=== PATIENT | female | born 1935 | race Caucasian/White ===

== ENCOUNTER 2021-01-07 05:55 | Day surgery (SDC) | payer MEDICARE, BC ==
--- NOTE | 2021-01-06 14:07 | PCM.PREANE ---
Preanesthetic Assessment - Procedure Proposed Procedure: Left total knee arthroplasty with right knee steroid injection - Anesthesia/Transfusion/Family Hx Anesthesia History: Prior Anesthesia Reaction Type of Anesthesia Reaction: Excessive Nausea/Vomiting Family History of Anesthesia Reaction: No Transfusion History: No Prior Transfusion(s) Intubation History: Unknown - Review of Systems General: No Symptoms Pulmonary: No Symptoms Cardiovascular: No Symptoms Gastrointestinal: No Symptoms Neurological: No Symptoms (Hx of stroke (approx 15 years ago) no decifits) Other: Reports: Easy Bleeding (Hx plavix), Easy Bruising - Physical Assessment NPO Status Date: 01/06/21 NPO Status Time: 23:59 Vital Signs: 160/56 0620 139/70 HR 75 95% 97.2 16 Height: 1.57 m Weight: 98.9 kg ASA Class: 3 Mental Status: Alert & Oriented x3 Dentition: Reports: Normal Dentition Thyro-Mental Finger Breadths: 2 Mouth Opening Finger Breadths: 2 ROM/Head Extension: Full Lungs: Clear to Auscultation, Normal Respiratory Effort Cardiovascular: Regular Rate, Regular Rhythm - Lab Values: Labs reviewed and okay to proceed - Imaging/EKG Impressions: Chest x-ray 12/18/20: Lungs are clear. No definite focal consolidation. No pleural effusion or pneumothorax. Cardiomegaly. Fat pad at the cardiac apex. Arterial calcification. Surgical changes in the right humeral head. Degenerative changes of the spine. EKG 12/18/20: Sinus HR 69 - Allergies Allergies/Adverse Reactions: Allergies Allergy/AdvReac Type Severity Reaction Status Date / Time latex Allergy Rash Verified 01/07/21 06:27 Penicillins Allergy Hives Verified 01/07/21 06:27 - Blood Blood Available: No Product(s) Available: None - Acknowledgements Anesthesia Type Planned: Spinal, Regional Block Pt an Appropriate Candidate for the Planned Anesthesia: Yes Alternatives and Risks of Anesthesia Discussed w Pt/Guardian: Yes Pt/Guardian Understands and Agrees with Anesthesia Plan: Yes PreAnesthesia Questionnaire HEENT History: Reports: Cataract Other HEENT History: TMJ, glasses Cardiovascular History: Reports: High Cholesterol Respiratory History: Reports: Asthma, Sleep Apnea Gastrointestinal History: Reports: Colon Polyp, Diverticulosis, GERD, Hemorrhoids Other Genitourinary History: cystocele, rectocele, hysterectomy Musculoskeletal History: Reports: Osteoporosis Other Musculoskeletal History: R rotator cuff tear Other Neuro History: CVA, TIA Endocrine/Metabolic History: Reports: Obesity/BMI 30+ - Past Surgical History HEENT Surgical History: Reports: Other (See Below) Other HEENT Surgeries/Procedures: TMJ surgery GI Surgical History: Reports: Appendectomy, Colonoscopy, Hernia Repair/Other Female Surgical History: Reports: Section Other Female Surgeries/Procedures: Bladder repairs x5 Musculoskeletal Surgical History: Reports: Shoulder Surgery Other Musculoskeletal Surgeries/Procedures:: heel surgery - SUBSTANCE USE Tobacco Use Status *Q: Never Tobacco User Tobacco Use Within Last Twelve Months: No Second Hand Smoke Exposure: No Days Per Week of Alcohol Use: 0 Number of Drinks Per Day: 0 Total Drinks Per Week: 0 Recreational Drug Use History: No - HOME MEDS Home Medications: Home Meds Clopidogrel [Plavix] 75 mg PO DAILY 04/27/14 [History] Montelukast [Singulair] 5 mg PO DAILY 04/27/14 [History] Pantoprazole [ProTONIX] 40 mg PO DAILY 04/27/14 [History] Rosuvastatin [Crestor] 20 mg PO BEDTIME 04/27/14 [History] Albuterol Sulfate [Albuterol Sulfate HFA] 2 puff INH Q4H PRN 01/06/21 [History] Aspirin [Aspirin EC] 325 mg PO DAILY #30 tablet.dr 01/06/21 [Rx] B2/Vits A,C,E/Lut/Zeaxanth/Min [Icaps] 1 tab PO DAILY 01/06/21 [History] Calcium Carb/Vitamin D3/Vit K1 [Viactiv 650 mg-12.5 Mcg Chew] 3 tab PO DAILY 01/06/21 [History] Colchicine 0.6 mg PO BID 01/06/21 [History] Denosumab [Prolia] 60 mg SQ ASDIRECTED 01/06/21 [History] Fish Oil/[place]-3 Fatty Acids [Fish Oil 1,000 MG] 1 gm PO DAILY 01/06/21 [History] Fluticasone Propion/Salmeterol [Advair 250-50 Diskus] 1 puff INH BID 01/06/21 [History] Hydrocodone/Acetaminophen [Hydrocodone-Acetamin 5-325 mg] 1 - 2 each PO Q4H PRN #40 tablet 01/06/21 [Rx] Lutein 20 mg PO DAILY 01/06/21 [History] Magnesium Hydroxide [Milk of Magnesia] 5 ml PO ASDIRECTED PRN 01/06/21 [History] - CURRENT (IN HOUSE) MEDS Current Meds: Current Medications Albuterol (Albuterol 0.083% 2.5 Mg/3 Ml Neb Soln) 2.5 mg NEB ONETIME MAGALIE Stop: 01/07/21 14:00 Morphine Sulfate 8 mg/Epinephrine HCl 0.3 mg/Cefuroxime Sodium 750 mg/Ketorolac Tromethamine 30 mg/Sodium Chloride 7.9 ml 0 mg .XX ASDIRECTED PRN PRN Reason: Pain Stop: 01/07/21 18:00 Lactated Ringer's (Ringers, Lactated) 1,000 mls @ 125 mls/hr IV ASDIRECTED MAGALIE Stop: 01/07/21 23:00 Lidocaine/Sodium Bicarbonate (Lidocaine 1%/Sod Bicarbonate In Ns 8.4% 1 Ml Syringe) 0.25 ml IDERM ONETIME PRN PRN Reason: Prior to IV Start Stop: 01/07/21 23:00 Sodium Chloride (Sodium Chloride 0.9% 10 Ml Syringe) 10 ml FLUSH ASDIRECTED PRN PRN Reason: Keep Vein Open Stop: 01/07/21 23:00
[~2021-01-07 05:55] MED LIST: Albuterol 0.083% 2.5 MG/3 ML Neb Soln NEB SCH; Lactated Ringers 1,000 ML IV SCH; Lidocaine 1%/Sod Bicarbonate in NS 8.4% 1 ML Syringe IDERM PRN; Sodium Chloride 0.9% 10 ML Syringe FLUSH PRN
[2021-01-07] MEDS ORDERED: Propofol 200 MG/20 ML SDV ONE ×2 (06:08→08:09)
[2021-01-07] MEDS ORDERED: fentaNYL 100 MCG/2 ML SDV ONE (06:08)
[2021-01-07] MEDS ORDERED: Midazolam 1 MG/ML 2 ML SDV ONE (06:09)
[2021-01-07] MEDS ORDERED: Ropivacaine 0.5% 5 MG/ML 30 ML SDV ONE (06:13)
[2021-01-07] MEDS ORDERED: EPINEPHrine 1 MG/ML SDV ONE (06:13)
[2021-01-07] MEDS ORDERED: Triamcinolone Acetonide 40 MG/ML 1 ML SDV ONE (06:37)
[2021-01-07] MEDS ORDERED: Bupivacaine 0.25% 10 ML SDV ONE (06:37)
[2021-01-07] MEDS ORDERED: ceFAZolin 1 GM Vial ONE (06:48)
[2021-01-07] MEDS ORDERED: Lactated Ringers 1,000 ML ONE (07:32)
[2021-01-07] MEDS ORDERED: HYDROmorphone 0.5 MG/0.5 ML Syringe IVPUSH PRN (07:49)
[2021-01-07] MEDS ORDERED: Ondansetron 4 MG/2 ML SDV IVPUSH PRN (07:49)
[2021-01-07] MEDS ORDERED: fentaNYL 100 MCG/2 ML SDV IVPUSH PRN (07:49)
[2021-01-07] MEDS: Vancomycin 1 GM SDV ONE ×3 (08:10→08:27)
[2021-01-07] MEDS: Morphine 8 MG, EPINEPHrine 0.3 MG, Cefuroxime 750 MG, Ketorolac 30 MG, Sodium Chloride ... PRN ×10 (08:12→08:18)
--- NOTE | 2021-01-07 09:17 | PCM.SN.2 ---
- Free Text/Narrative Note: Left selective femoral nerve block at the adductor canal for post-procedure pain control under US guidance requested by Dr. Herring. Date: 01/07/2021 Time Out: 899 Start: 900 End: 907 Chart reviewed. Consent signed. Questions answered. Appropriate monitors applied. Time out performed. Left mid-shaft femur identified with ultrasound, scanning medially of femur, the femoral artery in the adductor canal visualized, and the femoral nerve located laterally to the artery. The skin was prepped lateral to the ultrasound probe with chlorahexadine times two. The 21ga 4 insulated block needle was inserted under direct ultrasound guidance into the adductor canal. 20 mL of 0.5% ropivacaine with 1:200,000 epinephrine was injected circumferentially around the nerve with intermittent negative aspiration noted. Patient tolerated the procedure well. Sterile technique noted along with sterile gloves, mask, and sterile probe cover. See picture on progress note and vital signs on nurses notes. Block completed in PACU. Melissa Berrios, LINEN CHECKER
--- NOTE | 2021-01-07 09:18 | PCM.POSTAN ---
POST ANESTHESIA ASSESSMENT - MENTAL STATUS Mental Status: Alert, Oriented - VITAL SIGNS Vital Signs: Last Vital Signs Temp 97.2 F 01/07/21 06:03 Pulse 75 01/07/21 06:03 Resp 20 01/07/21 06:03 BP 160/56 H 01/07/21 06:12 Pulse Ox 95 01/07/21 06:03 VS at 0853: 122/57 HR 68 Sats 92% RA RR 20 97.3 - RESPIRATORY Respiratory Status: Respiratory Rate WNL, Airway Patent, O2 Saturation Stable - CARDIOVASCULAR CV Status: Pulse Rate WNL, Blood Pressure Stable - GASTROINTESTINAL GI Status: No Symptoms - PAIN Pain Score: 0 - POST OP HYDRATION Hydration Status: Adequate & Stable
--- NOTE | 2021-01-07 10:12 | CR ---
Left knee: AP and lateral views of the left knee were obtained. Comparison: Prior CT knee study of 12/16/20 is available. Left knee prosthesis is noted. Patellar prosthesis is also noted. Components are aligned. Underlying bony structures show nothing acute. Soft tissue air is noted from the surgical procedure. Impression: 1. Satisfactory post-op radiographic appearance of recently placed left knee prostheses. Diagnostic code #2
[2021-01-07] MEDS ORDERED: Acetaminophen/HYDROcodone 325-5 MG Tab PO PRN (10:34)
--- NOTE | 2021-01-07 13:34 | PCM48HPAN ---
Post Anesthesia Note - EVALUATION WITHIN 48HRS OF ANESTHETIC Vital Signs in Normal Range: Yes Patient Participated in Evaluation: Yes Respiratory Function Stable: Yes Airway Patent: Yes Cardiovascular Function Stable: Yes Hydration Status Stable: Yes Pain Control Satisfactory: Yes Nausea and Vomiting Control Satisfactory: Yes Mental Status Recovered: Yes Vital Signs: Last Vital Signs Temp 97.2 F 01/07/21 09:50 Pulse 60 01/07/21 12:04 Resp 17 01/07/21 12:04 BP 166/80 H 01/07/21 12:04 Pulse Ox 94 L 01/07/21 12:04 - COMMENTS/OBSERVATIONS Free Text/Narrative:: Saw patient at 1250 and patient excited to go home. VSS. Pain tolerable 10/18. Patient ambulated well.
--- NOTE | 2021-01-14 13:06 | PCM.OPNOTE ---
- General Post-Op/Procedure Note Date of Surgery/Procedure: 01/07/21 Operative Procedure(s): left total knee arthroplasty with [employer] robot[employer] and right knee corticosteroid injection Pre Op Diagnosis: bilateral knee osteoarthrosis Post-Op Diagnosis: Same Anesthesia Technique: Local, MAC, Spinal Primary Surgeon: Cam Herring Anesthesia Provider: Melissa Berrios Sweater Designer: Patti Carrillo Sweater Designer: Marilia Segura EBL in mLs: 5 Complications: None Condition: Good Free Text/Narrative:: 09/10 9mm 32x10 cemented knee
--- NOTE | 2021-01-18 20:17 | OR ---
DATE OF OPERATION: 01/07/2021 SURGEON: Cam Herring MD OPERATION PERFORMED: Left total knee arthroplasty with [employer] robot[employer] and right knee corticosteroid injection. PREOPERATIVE DIAGNOSIS: Bilateral knee osteoarthrosis. POSTOPERATIVE DIAGNOSIS: Bilateral knee osteoarthrosis. ANESTHESIA: Local MAC with spinal. ANESTHESIA PROVIDER: Melissa Berrios. ASSISTANTS: Patti Carrillo PA-C, and Marilia Segura LPN. ESTIMATED BLOOD LOSS: 5 mL. COMPLICATIONS: None. CONDITION: Stable. IMPLANT: 1. Shefali size 3 cemented PS femur. 2. Front Royal size 3 cemented Pawling tibial base plate. 3. Shefali size 3, 9 mm PS X3 polyethylene. 4. Shefali size 32 x 10 mm cemented asymmetric patella. DESCRIPTION OF PROCEDURE: DESCRIPTION OF PROCEDURE The patient was identified in the preop holding area. Proper site was marked and identified by the surgeon. The patient was taken back to the operating theater where after adequate anesthesia, the patient's left lower extremity had a nonsterile tourniquet applied and it was sterilely prepped and draped in the usual sterile fashion. OR time-out was performed. The patient received 2 g IV Ancef . Leg kerr was then applied to the left lower extremity. At this time, the left lower extremity was exsanguinated. Tourniquet was insufflated to 250 mmHg . Standard anterior incision was made. Medial parapatellar arthrotomy was created. Deep fibers of the MCL were raised as well as anterior fat pad was resected. Attention was turned to the patella. Patella measured 24 mm ; it was resected to 14 mm for 32 x 10 mm patella. Drill holes were then drilled. Attention was then turned to the femur. Two 4.0 pins were placed intra- incisionally for the [employer] robotic array and then 2 more were placed on the tibia 3 fingerbreadths below the tibial tubercle. The Front Royal Mak robotic arrays were placed on both the femur and the tibia then at this time as well as checkpoints on the femur and tibia. Hip center rotation was then obtained. The medial and lateral malleoli were marked. At this time, 40 points were obtained off the femur and the tibia for the Shefali Mak robotic plan. The patient's knee was brought to full extension. Varus and valgus stresses were applied and then into 90 degrees of flexion with a curved osteotome. Varus and valgus stresses were applied. At this time, WiN MS robotic plan was done to 19 mm gaps in both flexion and extension. Shefali Mako robotic arm was then brought in. A straight saw blade was then used for the tibial cut, the anterior femoral cut, the anterior chamfer cut, and the posterior femoral cut. All bony fragments were removed. Saw blade was then switched out and the distal femoral cut as well as the posterior chamfer cut was completed. At this time, medial and lateral menisci were resected as well as any posterior osteophytes. A size 3 mm trial tibia was then placed, size 3 mm trial femur was placed, and a size 3, 9 mm polyethylene trial liner was placed. The patient's knee was brought to full extension and flexion. Varus and valgus stresses were applied, was found to be stable with no instability. No signs of liftoff or loosening were noted. At this time, box cut was completed on the femur. The pins were removed from the femur and the tibia as well as the arrays and the checkpoints. Cement was mixed on the back table. All cut surfaces were irrigated with pulse lavage irrigation with Ancef and then completely dried. Once the cement was ready, the Front Royal size 3 mm cemented Pawling tibial base plate having been previously stamped and drilled, was then cemented in place on the tibia. The Front Royal size 3 mm cemented PS femur was cemented into place. The patient had a Shefali size 3, 9 mm PS X3 polyethylene insert placed. The patient's knee was brought to full extension. Excess cement was removed. A Shefali size 32 x 10 mm cemented asymmetric patella was then cemented into place. 1 L of pulse lavage irrigation with Ancef was irrigated through the knee along with 400 mL of Irrisept irrigation. Periarticular injection was completed. Topical tranexamic acid and vancomycin powder were applied. A #2 barbed suture was used for closure of the medial parapatellar arthrotomy in flexion. 2-0 Vicryl and Stratafix were used for subcutaneous closure. Prineo was used for cutaneous closure. The patient had a sterile soft dressing applied. The tibial holes were closed with nylon, and this was also covered with a sterile soft dressing. The patient had an KENDRICK wrap applied and was sent to PACU in stable condition. The patient tolerated the procedure well. After this was completed and under sterile technique, 2 mL of 40 mg Kenalog and 4 mL of 0.25% Marcaine were then injected into the right knee. The patient tolerated all procedures well. MMARY /[id number]
== END 2021-01-07 13:03 | disposition home or self-care (01) ==
LOC: JD.SDS 05:55
PROVIDERS: ATTEND Orthopaedic Surgery
DX: M17.0 Bilateral primary osteoarthritis of knee (principal); J45.30 Mild persistent asthma, uncomplicated; E78.00 Pure hypercholesterolemia, unspecified; G89.18 Other acute postprocedural pain; G47.30 Sleep apnea, unspecified; E66.9 Obesity, unspecified; Z79.899 Other long term (current) drug therapy; Z88.0 Allergy status to penicillin; Z90.49 Acquired absence of other specified parts of digestive tract; Z98.890 Other specified postprocedural states; Z91.040 Latex allergy status; Z79.82 Long term (current) use of aspirin; Z68.39 Body mass index [BMI] 39.0-39.9, adult
CPT/HCPCS: 20610; 27447; 73560; 94640; 97110; 97116; 97161; A9270; C1713; C1776; J0171; J0690; J0697; J1885; J2270; J2704; J2795; J3301; J3370; J3490; J7120; 01402; 64450; 76942; 99100; J2250; J3010

== ENCOUNTER 2024-02-08 06:45 | Day surgery (SDC) | payer MEDICARE, BC ==
[2024-02-08] MEDS: Lactated Ringers 1,000 ML IV SCH (07:10)
[2024-02-08] MEDS ORDERED: Midazolam 1 MG/ML 2 ML SDV ONE (07:18)
[2024-02-08] MEDS ORDERED: Propofol 200 MG/20 ML SDV ONE (07:18)
[2024-02-08] MEDS ORDERED: Ketamine 200 MG/20 ML MDV ONE (07:18)
[2024-02-08] MEDS ORDERED: Ropivacaine 0.5% 5 MG/ML 30 ML SDV ONE (07:21)
[2024-02-08] MEDS: Albuterol/Ipratropium 3.0-0.5 MG/3 ML Neb Soln NEB PRN (07:21)
[2024-02-08] MEDS ORDERED: dexmedeTOMIDine HCl 200 MCG/2 ML SDV ONE (07:33)
[2024-02-08] MEDS ORDERED: Dexamethasone 4 MG/ML 5 ML MDV ONE (07:33)
[2024-02-08] MEDS ORDERED: Sodium Chloride 0.9% 100 ML ONE (07:33)
[2024-02-08] MEDS ORDERED: ceFAZolin 2 GM Vial ONE (08:36)
[2024-02-08] MEDS ORDERED: Lidocaine 2% 5 ML SDV ONE (08:36)
[2024-02-08] MEDS: Morphine 8 MG, EPINEPHrine 0.3 MG, Cefuroxime 750 MG, Ketorolac 30 MG, Sodium Chloride ... PRN (09:27)
[2024-02-08] MEDS: Vancomycin 1 GM SDV ONE (09:34)
[2024-02-08] MEDS: Tranexamic Acid 1,000 MG/10 ML Vial ONE (09:34)
[2024-02-08] MEDS ORDERED: HYDROmorphone 0.5 MG/0.5 ML Syringe IVPUSH PRN (10:11)
[2024-02-08] MEDS ORDERED: Ondansetron 4 MG/2 ML SDV IVPUSH PRN (10:11)
[2024-02-08] MEDS ORDERED: fentaNYL 100 MCG/2 ML SDV IVPUSH PRN (10:11)
[2024-02-08] MEDS ORDERED: oxyCODONE 5 MG Tab PO ONE (12:59)
[2024-02-08] MEDS: Acetaminophen/HYDROcodone 325-5 MG Tab PO PRN (14:49)
== END 2024-02-08 15:05 | disposition home or self-care (01) ==
LOC: JD.SDS 06:45
PROVIDERS: ATTEND Orthopaedic Surgery
DX: M17.11 Unilateral primary osteoarthritis, right knee (principal); G47.33 Obstructive sleep apnea (adult) (pediatric); J45.40 Moderate persistent asthma, uncomplicated; K21.9 Gastro-esophageal reflux disease without esophagitis; M81.0 Age-related osteoporosis without current pathological fracture; E78.5 Hyperlipidemia, unspecified; E66.9 Obesity, unspecified; T14.8XXA Other injury of unspecified body region, initial encounter; Z79.899 Other long term (current) drug therapy; Z88.0 Allergy status to penicillin; Z91.09 Other allergy status, other than to drugs and biological substances; Z68.41 Body mass index [BMI] 40.0-44.9, adult
CPT/HCPCS: 0055T; 27447; 73560; 97110; 97161; A9270; C1713; C1776; J0171; J0690; J0697; J1100; J1885; J2250; J2270; J2704; J2795; J3370; J3490; J7120; 01402; 99100; J7620-GY